=== PATIENT | male | born 1960 | race Caucasian/White ===

== ENCOUNTER 2021-12-12 13:57 | Emergency (ER) | payer OTHER, MEDICARE ==
[~2021-12-12] VITALS: Ht 177.8 cm; Wt 127.0 kg
[~2021-12-12 13:57] MED LIST: METO25ER
[2021-12-12] MEDS ORDERED: HYDR1TAB94 PO (16:35)
== END 2021-12-12 16:50 | disposition home or self-care (01) ==
LOC: ER 13:57
DX: S43.014A Anterior dislocation of right humerus, initial encounter (principal); I10 Essential (primary) hypertension; Z79.899 Other long term (current) drug therapy; W01.198A Fall on same level from slipping, tripping and stumbling with subsequent striking against other object, initial encounter; Z87.891 Personal history of nicotine dependence
CPT/HCPCS: 23655; 73020; 73030; 96374; 96375; 99283-25; J1885; J2704; J3010; J7030

== ENCOUNTER 2022-04-06 08:09 | Day surgery (SDC) | payer OTHER, MEDICARE ==
[~2022-04-06] VITALS: Ht 177.8 cm; Wt 104.6 kg
[~2022-04-06 08:09] MED LIST changes: +HYDR1TAB94 PO
[2022-04-06] MEDS ORDERED: OMEP20ER ×2 (08:31→08:42)
[2022-04-06] MEDS ORDERED: HYDCHL25 PO (08:43)
[2022-04-06] MEDS ORDERED: ESCI20 (08:43)
[2022-04-06] MEDS ORDERED: RAMI5 PO (08:45)
[2022-04-06] MEDS ORDERED: ESCI10 PO (08:45)
--- NOTE | 2022-04-06 09:18 | NUR ---
04/06/22 0918 [place] TIME OUT AND SITE CHECK DONE WITH DR MEG JACK.
--- NOTE | 2022-04-06 10:25 | NUR ---
04/06/22 1025 Zamzam Hughes 1MG OF EPI ADDED TO FIRST 3 BAGS OF LR USED FOR JOINT IRRIGATION.
--- NOTE | 2022-04-06 12:14 | NUR ---
04/06/22 1214 SUSY BASILIO PT STATES PAIN IS TOLERABLE AT TIME OF DC. RN EDUCATED PT ON INCEPTIVE SPIROMETER EXTENSIVELY, PT VERBALIZED UNDERSTANDING AND ACTIVELY DEMONSTARTED USING IT CORRECTLY
== END 2022-04-06 12:14 | disposition home or self-care (01) ==
LOC: ORSCSDS 08:09
PROVIDERS: Orthopaedic Surgery
PROC: 0LQ14ZZ Repair Right Shoulder Tendon, Percutaneous Endoscopic Approach (ICD-10-PCS; principal; 2022-04-06 09:30)
PROC: 3E0U3GC Introduction of Other Therapeutic Substance into Joints, Percutaneous Approach (ICD-10-PCS; principal; 2022-04-06 09:30)
DX: M75.111 Incomplete rotator cuff tear or rupture of right shoulder, not specified as traumatic (principal); M75.21 Bicipital tendinitis, right shoulder; M75.41 Impingement syndrome of right shoulder; I10 Essential (primary) hypertension; K21.9 Gastro-esophageal reflux disease without esophagitis; Z79.899 Other long term (current) drug therapy
CPT/HCPCS: 29827; 0232T; C1713; J0171; J0690; J1100; J1885; J2250; J2370; J2405; J2704; J3010; J7120

== ENCOUNTER 2022-04-22 12:29 | Emergency (ER) | payer OTHER, MEDICARE ==
[~2022-04-22] VITALS: Ht 177.8 cm; Wt 104.3 kg
[~2022-04-22 12:29] MED LIST changes: +ESCI10 PO; +ESCI20; +HYDCHL25 PO; +OMEP20ER; +RAMI5 PO
[2022-04-22] MEDS ORDERED: XARELTO1 EAC1 PO (13:59)
== END 2022-04-22 14:11 | disposition home or self-care (01) ==
LOC: VAS 12:29 → ER 12:29 → EDSTATUS 13:30 → VAS 13:30 → ER 14:11
DX: I82.721 Chronic embolism and thrombosis of deep veins of right upper extremity (principal); I82.611 Acute embolism and thrombosis of superficial veins of right upper extremity; I10 Essential (primary) hypertension; F12.90 Cannabis use, unspecified, uncomplicated; Z87.891 Personal history of nicotine dependence; Z79.899 Other long term (current) drug therapy
CPT/HCPCS: 93971; 99282-25

== ENCOUNTER 2024-12-22 07:59 | Day surgery (SDC) | payer OTHER, MEDICARE ==
[~2024-12-22] VITALS: Ht 177.8 cm; Wt 98.5 kg
[~2024-12-22 07:59] MED LIST changes: +Lactated Ringer's 1,000 ML IV ONE; +XARELTO1 EAC1 PO; +propofoL 50 ML IV ONE
[2024-12-22] MEDS ORDERED: D 3 (08:50)
[2024-12-22] MEDS ORDERED: Lactated Ringer's 1,000 ML IV ONE (09:21)
--- NOTE | 2024-12-22 09:22 | NUR ---
12/22/24 0922 Jasmyne Ramirez PT. DENIES ANY PAIN.
[2024-12-22 10:58] VITALS: BP 136/79
== END 2024-12-22 10:37 | disposition home or self-care (01) ==
LOC: ORSCSDS 07:59
PROVIDERS: Internal Medicine Gastroenterology
PROC: 0DBL8ZX Excision of Transverse Colon, Via Natural or Artificial Opening Endoscopic, Diagnostic (ICD-10-PCS; principal; 2024-12-22 09:30)
PROC: 0DBK8ZX Excision of Ascending Colon, Via Natural or Artificial Opening Endoscopic, Diagnostic (ICD-10-PCS; principal; 2024-12-22 09:30)
DX: Z12.11 Encounter for screening for malignant neoplasm of colon (principal); D12.2 Benign neoplasm of ascending colon; D12.3 Benign neoplasm of transverse colon; K57.30 Diverticulosis of large intestine without perforation or abscess without bleeding; K44.9 Diaphragmatic hernia without obstruction or gangrene; I10 Essential (primary) hypertension; E78.5 Hyperlipidemia, unspecified; K21.9 Gastro-esophageal reflux disease without esophagitis; Z87.891 Personal history of nicotine dependence; Z79.899 Other long term (current) drug therapy
CPT/HCPCS: 88305; J2704; J7120